=== PATIENT | male | born 1975 | race Caucasian/White ===

== ENCOUNTER 2025-06-18 12:24 | Inpatient (IN) | payer OTHER ==
[~2025-06-18] VITALS: Ht 185.4 cm; Wt 132.9 kg
[2025-06-18 13:03] LABS: PLATELET COUNT (AUTO) 178 K/uL (150-450); RED BLOOD CELL COUNT(AUTO) 4.71 MIL/uL (4.5-6.0); RED CELL DISTRIBUTION WIDTH 15.9 % (11.5-15.0); WHITE BLOOD COUNT (AUTO) 5.9 K/uL (4.3-11.0)
[2025-06-18 13:14] LABS: CALCIUM, SERUM 8.1 mg/dL (8.5-10.1); CREATININE 1.2 mg/dL (0.6-1.3); SODIUM SERUM 135.0 mmol/L (136-145); UREA NITROGEN, BLOOD 31.0 mg/dL (7-18)
[2025-06-18 13:19] LABS: ASPARTATE AMINOTRANSFERASE 51.0 U/L (15-37); TOTAL PROTEIN, SERUM 6.8 g/dL (6.4-8.2)
[2025-06-18] MEDS ORDERED: FUROSEMIDE 40 MG/4 ML VIAL ONE (13:30)
[2025-06-18] MEDS: FUROSEMIDE 40 MG/4 ML VIAL IV ONE (13:30)
[2025-06-18 13:46] LABS: NT-PRO BNP 3076 pg/mL (0-125)
[2025-06-18 14:49] LABS: APPEARANCE,URINE CLEAR (CLEAR); BLOOD, URINE 1+ Ery/uL (NEGATIVE); LEUKOCYTE ESTERASE ,URINE NEGATIVE (NEGATIVE); NITRITE, URINE NEGATIVE (NEGATIVE); UGLUCOSE NEGATIVE (NEGATIVE)
[2025-06-18 15:09] LABS: ADD URINE CULTURE YES; SQUAMOUS EPITHELIAL CELL,UR Few /HPF (None Seen)
[2025-06-18] MEDS ORDERED: INSU100I30 SQ (15:35)
[2025-06-18] MEDS ORDERED: METOPROLOL PO (15:35)
[2025-06-18] MEDS ORDERED: FURO-144 PO (15:35)
[2025-06-18] MEDS ORDERED: INSU100I14 SQ (15:35)
[2025-06-18] MEDS ORDERED: ONDANSETRON HCL/PF 4 MG/2 ML VIAL IVP PRN (16:00)
[2025-06-18] MEDS ORDERED: MAGNESIUM HYDROXIDE 30 ML UDC PO PRN (16:00)
[2025-06-18] MEDS ORDERED: MAG HYDROX/AL HYDROX/SIMETH 30 ML UDC PO PRN (16:00)
[2025-06-18] MEDS ORDERED: ACETAMINOPHEN 325 MG TABLET PO PRN (16:00)
[2025-06-18] MEDS ORDERED: DEXTROSE 50%-WATER 50 ML DISP.SYRIN IV PRN (16:00)
[2025-06-18] MEDS ORDERED: Z GUARD REMEDY 4 OZ OINT TP PRN (16:00)
[2025-06-18] MEDS ORDERED: ENOXAPARIN SODIUM 40 MG/0.4 ML DISP.SYRIN SQ ONE (16:05)
[2025-06-18] MEDS ORDERED: ENOXAPARIN SODIUM 100 MG/ML DISP.SYRIN SQ ONE (16:05)
[2025-06-18] MEDS: ENOXAPARIN SODIUM 150 MG/ML DISP.SYRIN SQ SCH (16:10)
[2025-06-18] MEDS: FUROSEMIDE 40 MG/4 ML VIAL IV SCH (17:39)
[2025-06-18] MEDS: INSULIN ASPART/LISPRO 100 UNIT/ML CARTRIDGE SQ SCH (17:51)
[2025-06-18] MEDS: BLOOD SUGAR DIAGNOSTIC 1 EACH STRIP VI SCH (17:52)
[2025-06-18 20:58] VITALS: BP 141/91; TEMP 97.9; O2SAT 96
[2025-06-18] MEDS: *INSULIN REGULAR(HUMULIN R)HUM 100 UNIT/ML VIAL SQ PRN (21:45)
[2025-06-19] MEDS ORDERED: ENOXAPARIN SODIUM 40 MG/0.4 ML DISP.SYRIN SQ ONE (03:39)
[2025-06-19] MEDS ORDERED: ENOXAPARIN SODIUM 100 MG/ML DISP.SYRIN SQ ONE (03:40)
[2025-06-19] MEDS: INSULIN REGULAR, HUMAN 100 UNIT/ML 3 ML VIAL SQ PRN (06:27)
[2025-06-19 07:03] LABS: PLATELET COUNT (AUTO) 176 K/uL (150-450); RED BLOOD CELL COUNT(AUTO) 4.72 MIL/uL (4.5-6.0); RED CELL DISTRIBUTION WIDTH 16.0 % (11.5-15.0); WHITE BLOOD COUNT (AUTO) 5.9 K/uL (4.3-11.0)
[2025-06-19 07:23] LABS: CALCIUM, SERUM 7.8 mg/dL (8.5-10.1); CREATININE 1.2 mg/dL (0.6-1.3); PHOSPHORUS 3.1 mg/dL (2.5-4.9); SODIUM SERUM 140.0 mmol/L (136-145); UREA NITROGEN, BLOOD 30.0 mg/dL (7-18)
[2025-06-19 08:26] VITALS: BP 123/83; TEMP 98; O2SAT 99
[2025-06-19] MEDS: ASPIRIN 325 MG TABLET PO SCH (09:31)
[2025-06-19] MEDS: INSULIN GLARGINE, 100 UNIT/ML CARTRIDGE SQ SCH (09:34)
[2025-06-19 09:40] VITALS: BP 123/83; TEMP 98; O2SAT 99
[2025-06-19] MEDS: SPIRONOLACTONE 25 MG TABLET PO SCH (17:49)
[2025-06-19] MEDS: LOSARTAN POTASSIUM 25 MG TABLET PO SCH (17:50)
[2025-06-19 20:00] VITALS: BP 120/106; TEMP 98.1; O2SAT 99
[2025-06-20 06:15] LABS: PLATELET COUNT (AUTO) 187 K/uL (150-450); RED BLOOD CELL COUNT(AUTO) 5.29 MIL/uL (4.5-6.0); RED CELL DISTRIBUTION WIDTH 16.8 % (11.5-15.0); WHITE BLOOD COUNT (AUTO) 5.1 K/uL (4.3-11.0)
[2025-06-20 06:37] LABS: CALCIUM, SERUM 8.4 mg/dL (8.5-10.1); CREATININE 1.3 mg/dL (0.6-1.3); SODIUM SERUM 138.0 mmol/L (136-145); UREA NITROGEN, BLOOD 26.0 mg/dL (7-18)
[2025-06-20 07:00] VITALS: BP 125/88; TEMP 98.1; O2SAT 94
[2025-06-20 12:57] VITALS: BP 125/88; TEMP 98.1; O2SAT 94
[2025-06-20] MEDS: BUMETANIDE INJ 0.25 MG/ML VIAL IV SCH (13:05)
[2025-06-20 16:00] VITALS: BP 127/86; TEMP 97.7; O2SAT 100
[2025-06-20 20:00] VITALS: BP 126/84; TEMP 97.8; O2SAT 98
[2025-06-21 04:00] VITALS: BP 140/94; TEMP 97.7; O2SAT 98
[2025-06-21 05:20] VITALS: BP 140/94; TEMP 97.4; O2SAT 98
[2025-06-21 06:51] LABS: PLATELET COUNT (AUTO) 182 K/uL (150-450); RED BLOOD CELL COUNT(AUTO) 4.99 MIL/uL (4.5-6.0); RED CELL DISTRIBUTION WIDTH 16.4 % (11.5-15.0); WHITE BLOOD COUNT (AUTO) 5.6 K/uL (4.3-11.0)
[2025-06-21 07:07] LABS: CALCIUM, SERUM 8.4 mg/dL (8.5-10.1); CREATININE 1.1 mg/dL (0.6-1.3); SODIUM SERUM 138.0 mmol/L (136-145); UREA NITROGEN, BLOOD 27.0 mg/dL (7-18)
[2025-06-21 08:00] VITALS: BP 147/89; TEMP 97.8; O2SAT 100
[2025-06-21 12:00] VITALS: BP 150/86; TEMP 97.9; O2SAT 98
[2025-06-21 16:00] VITALS: BP 108/79; TEMP 98.5; O2SAT 95
[2025-06-21 20:00] VITALS: BP 118/89; TEMP 98.4; O2SAT 98
[2025-06-22] VITALS: BP 138/98; TEMP 98.6; O2SAT 96
[2025-06-22 08:00] VITALS: BP 130/84; O2SAT 95
[2025-06-22 11:00] VITALS: BP 149/89; TEMP 97.3; O2SAT 94
[2025-06-22 16:00] VITALS: BP 107/87; TEMP 98.4; O2SAT 97
[2025-06-22 20:00] VITALS: BP 96/84; TEMP 98.2; O2SAT 98
[2025-06-23] VITALS: BP 128/89; TEMP 97.9; O2SAT 96
[2025-06-23 08:00] VITALS: BP 140/100; TEMP 98.6; O2SAT 100
[2025-06-23 11:00] VITALS: BP 130/85; TEMP 98.1; O2SAT 100
[2025-06-23] MEDS ORDERED: SPIR25TA6 PO (11:10)
[2025-06-23] MEDS ORDERED: LOSA25TA27 PO (11:10)
[2025-06-23] MEDS ORDERED: BUME1TAB9 PO (11:11)
[2025-06-23] MEDS ORDERED: ASPI-1169 PO (11:22)
[2025-06-23] MEDS ORDERED: ATOR40TA PO (11:22)
== END 2025-06-23 15:08 | disposition home or self-care (01) | DRG 194 ==
LOC: ER 12:32 → TELE 15:32
PROVIDERS: ADMIT Internal Medicine; ATTEND Internal Medicine
PROC: 0JBP0ZZ Excision of Left Lower Leg Subcutaneous Tissue and Fascia, Open Approach (ICD-10-PCS; principal; 2025-06-20)
PROC: 0JBN0ZZ Excision of Right Lower Leg Subcutaneous Tissue and Fascia, Open Approach (ICD-10-PCS; 2025-06-20)
DX: I11.0 Hypertensive heart disease with heart failure (principal); I21.A1 Myocardial infarction type 2; I87.313 Chronic venous hypertension (idiopathic) with ulcer of bilateral lower extremity; L97.919 Non-pressure chronic ulcer of unspecified part of right lower leg with unspecified severity; I25.10 Atherosclerotic heart disease of native coronary artery without angina pectoris; I50.23 Acute on chronic systolic (congestive) heart failure; I87.2 Venous insufficiency (chronic) (peripheral); L97.929 Non-pressure chronic ulcer of unspecified part of left lower leg with unspecified severity; E11.40 Type 2 diabetes mellitus with diabetic neuropathy, unspecified; E78.5 Hyperlipidemia, unspecified; E66.01 Morbid (severe) obesity due to excess calories; Z79.899 Other long term (current) drug therapy; Z68.38 Body mass index [BMI] 38.0-38.9, adult; N50.89 Other specified disorders of the male genital organs; Z59.00 Homelessness unspecified; Z88.0 Allergy status to penicillin; I42.8 Other cardiomyopathies; Z79.4 Long term (current) use of insulin; L97.829 Non-pressure chronic ulcer of other part of left lower leg with unspecified severity; L97.819 Non-pressure chronic ulcer of other part of right lower leg with unspecified severity
CPT/HCPCS: 36415; 71045-TC; 76870-TC; 80048-TC; 80076-TC; 81001; 82962-TC; 83690-TC; 83735-TC; 83880; 84100-TC; 84484-TC; 85025-TC; 87086-TC; 93307-TC; 93970-TC; 97116-TC; 97530-TC; 98960; A6253; G0378; J1650; J1815; J1938; J3490